=== PATIENT | male | born 1980 | race African-American/Black ===

== ENCOUNTER 2017-12-23 15:55 | Emergency (ER) | payer OTHER ==
[~2017-12-23] VITALS: Ht 180.3 cm; Wt 172.4 kg
[2017-12-23] MEDS ORDERED: WATER ONE (16:17)
[2017-12-23 16:31] VITALS: BP 187/112
--- NOTE | 2017-12-23 16:33 | ER.PDOC ---
General Chief Complaint: General Complaint Stated Complaint: LEG INJURY, BLEEDING VARICOSE VEIN R LEG TRAVEL OUT OF US: No Time seen by MD: 16:33 Source: patient Exam Limitations: no limitations History of Present Illness Timing/Duration: 1/2 hour Severity: mild Modifying Factors: improves with cold therapy Past Medical History Medical History: hypertension Surgical History: no surgical history Social History Smoking: non-smoker Alcohol Use: none Drug Use: none Review of Systems All Other Systems: Reviewed and Negative Physical Exam General Appearance: No Apparent Distress EENT: eyes nml inspection Neck: Non-Tender Respiratory: chest non-tender CVS: reg rate & rhythm Gastrointestinal: Normal Bowel Sounds Back: Normal Inspection Extremities: Normal Range of Motion, Swelling Neurologic/Psychiatric: trade marker II-XII NML as Tested Skin: Normal Color Progress Progress VEIN CAUTERIZED WITH AGNO3 Course Blood Pressure Systolic: 187 Blood Pressure Diastolic: 112 Blood Pressure Mean: 137 Departure Time of Disposition: 17:00 Disposition: 01 HOME, SELF-CARE Impression: Primary Impression: Varicose vein of leg Condition: Improved Referrals: PCP,UNKNOWN (PCP) PRIMARY CARE PROVIDER Duration or Time Spent with Pa: 30 MIN CHAIM BATES MD Dec 23, 2017 16:32
--- NOTE | 2017-12-23 16:34 | NUR ---
ARRIVAL PATIENT PRESENTED TO ER WITH ACTIVE BLEEDING TO RIGHT LEG, PATIENT HAD SUSPECTED VERICOSE VEIN RUPTURE. DR BATES AT BEDSIDE, EPD USED SILVER NITRATE AND STOPPED BLEEDING, PRESSURE DRESSING APPLIED TO WOUND.
--- NOTE | 2017-12-23 17:35 | NUR ---
DISCHARGE PT DISCHARGED AT THIS TIME. PT UNDERSTANDS ALL DC INFORMATION AND NEW MEDICATIONS. PT DENIES ANY OTHER NEEDS AT THIS TIME. PT AMBULATED OFF OF FLOOR TO PRIVATE VEHICLE
[2017-12-23 17:39] VITALS: BP 187/112
== END 2017-12-23 17:35 | disposition home or self-care (01) ==
LOC: ER 15:55
DX: I83.91 Asymptomatic varicose veins of right lower extremity (principal); I10 Essential (primary) hypertension
CPT/HCPCS: 99284